=== PATIENT | female | born 1995 | race American Indian/Alaskan Native ===

== ENCOUNTER 2016-05-14 20:48 | Emergency (ER) | payer MEDICAID ==
[2016-05-14 21:26] LABS: Basophils % (Auto) 0.4 % (0.0-1.8); Eosinophils % (Auto) 0.7 % (0.0-4.3); Hematocrit 35.2 % (30.3-42.9); Hemoglobin 11.8 gm/dl (10.1-14.3); Mean Corpuscular HGB Conc 34 % (30-34); Mean Corpuscular Hemoglobin 33 pg (28-32); Mean Corpuscular Volume 98 fl (79-97); Platelet Count 218 K/mm3 (140-440); Red Blood Count 3.58 M/mm3 (3.65-5.03); Red Cell Distribution Width 14.1 % (13.2-15.2); White Blood Count 8.4 K/mm3 (4.5-11.0)
[2016-05-14 21:49] LABS: Anion Gap 18 mmol/L; Blood Urea Nitrogen 13 mg/dL (7-17); Calcium 8.6 mg/dL (8.4-10.2); Carbon Dioxide 22 mmol/L (22-30); Chloride 101.4 mmol/L (98-107); Glucose 88 mg/dL (65-100); Potassium 4.6 mmol/L (3.6-5.0); Sodium 137 mmol/L (137-145)
--- NOTE | 2016-05-14 22:21 | Emergency Department Report ---
ED General Adult HPI - General Chief complaint: Chest Pain Stated complaint: CHEST PAIN Time Seen by Provider: 05/14/16 21:59 Source: patient Mode of arrival: Stretcher Limitations: No Limitations - History of Present Illness Initial comments: This is a 20-year-old female. She is previously unknown to me. She is 1, para 0. Her senior mortgage loan processor is Dr. Fabian Hoskins at [place]. She is approximately 27 weeks . Patient reports that she has been following up with outpatient care, and reports an uncomplicated . Patient presents to the ER with chest pressure, shortness of breath and dizziness. Symptoms started at 7:00 this evening, they have since resolved. The pressure did not radiate to the back, arms and neck. There is no vomiting or diaphoresis. There is no leg pain or leg swelling. There is no hematemesis. There is no bright red blood per rectum. Symptoms do not change with deep inspiration or when the patient eats. Dizziness is described as a sensation of being woozy, there is no ataxia, there is no syncope, there is no near syncope. Patient reports eating and drinking the way she typically eats and drinks. Symptoms are currently resolved at this time. -: Gradual Location: chest Radiation: non-radiation Severity scale (0 -10): 8 Quality: aching Consistency: now resolved Improves with: none Worsens with: none Associated Symptoms: chest pain, shortness of breath, weakness. denies: confusion, cough, diaphoresis, headaches, loss of appetite, malaise, nausea/ vomiting - Related Data Allergies Allergy/AdvReac Type Severity Reaction Status Date / Time No Known Allergies Allergy Unverified 05/14/16 20:58 ED Review of Systems ROS: Stated complaint: CHEST PAIN Other details as noted in HPI Constitutional: denies: fever Eyes: denies: eye discharge ENT: as per HPI Respiratory: see HPI Cardiovascular: chest pain Gastrointestinal: denies: abdominal pain Genitourinary: as per HPI Musculoskeletal: as per HPI Skin: as per HPI Neurological: as per HPI Psychiatric: as per HPI, anxiety ED Past Medical Hx - Past Medical History Previous Medical History?: No - Surgical History Past Surgical History?: No - Social History Smoking Status: Never Smoker Substance Use Type: None ED Physical Exam - General Limitations: No Limitations General appearance: alert, in no apparent distress - Head Head exam: Present: atraumatic, normocephalic - Eye Eye exam: Present: normal appearance, PERRL, EOMI. Absent: nystagmus - ENT ENT exam: Present: normal exam, normal orophraynx, mucous membranes moist, normal external ear exam - Neck Neck exam: Present: normal inspection, full ROM. Absent: tenderness, meningismus - Respiratory Respiratory exam: Present: normal lung sounds bilaterally. Absent: respiratory distress, wheezes, rales, chest wall tenderness - Cardiovascular Cardiovascular Exam: Present: regular rate, normal rhythm, normal heart sounds. Absent: bradycardia, tachycardia, irregular rhythm, systolic murmur, diastolic murmur, rubs, gallop - GI/Abdominal GI/Abdominal exam: Present: soft, normal bowel sounds, other (the abdomen is nontender. The uterus is consistent for dates. There is no abdominal tenderness. There is no epigastric tenderness.). Absent: distended, tenderness , guarding, rebound, rigid, pulsatile mass - Extremities Exam Extremities exam: Present: normal inspection, full ROM, normal capillary refill. Absent: tenderness, pedal edema, joint swelling, calf tenderness - Back Exam Back exam: Present: normal inspection, full ROM. Absent: tenderness, CVA tenderness (R), CVA tenderness (L), muscle spasm, paraspinal tenderness, vertebral tenderness - Neurological Exam Neurological exam: Present: alert, oriented X3, normal gait, other (Extraocular movements intact. Tongue midline. No facial droop. Facial sensation intact to light touch in the V1, V2, V3 distribution bilaterally. 5 and 5 strength in 4 extremities.. Sensation is intact to light touch in 4 extremities.). Absent : motor sensory deficit - Psychiatric Psychiatric exam: Present: normal affect, normal mood - Skin Skin exam: Present: warm, dry, intact, normal color. Absent: rash ED Course Vital Signs 05/14/16 05/14/16 21:01 21:55 Temperature 97.3 F L 98.7 F Pulse Rate 81 85 Respiratory 20 16 Rate Blood Pressure 113/62 Blood Pressure 113/62 102/65 [Right] O2 Sat by Pulse 97 99 Oximetry - Reevaluation(s) Reevaluation #1: 05/14/16 23:28 Principal diagnosis: GERD, gastritis, acute coronary syndrome, pneumonia, orthostasis, pulmonary embolus Assessment and plan: 20-year-old female who is approximately 27 weeks , with chest pressure, dizziness, nonspecific shortness of breath. She has a GCS of 15, with an NIH score is 0. She walks with a steady gait. Her physical exam is unremarkable. The uterus appears consistent with dates, and heart tones are easily appreciated. Patient low risk by KIANA score, low risk by heart score, EKG was morphologically unremarkable. Given nonspecific complaints, I was concerned about presentation for possible pulmonary embolus. A d-dimer was elevated. However, the patient refused x-ray, and refused further imaging, including nuclear medicine study and CT angiogram. The patient is going to sign out AGAINST MEDICAL ADVICE. She was counseled about the risks of undiagnosed potential blood clot in the lung, including , disability, paralysis, loss of , loss of quality of life. The patient is alert and oriented 3, exhibits decision-making capacity, and is free from distracting injury. She understands that she can follow-up in the ER immediately as soon as possible if she changes her mind. Furthermore, the AMA conversation is witnessed by nurse Jacque Catalan, the patient's mother, and the patient's significant other. ED Medical Decision Making - Lab Data Result diagrams: 05/14/16 21:13 05/14/16 21:13 Vital Signs 05/14/16 05/14/16 21:01 21:55 Temperature 97.3 F L 98.7 F Pulse Rate 81 85 Respiratory 20 16 Rate Blood Pressure 113/62 Blood Pressure 113/62 102/65 [Right] O2 Sat by Pulse 97 99 Oximetry Lab Results 05/14/16 05/14/16 05/14/16 Range/Units 21:13 21:13 21:13 WBC 8.4 (4.5-11.0) K/mm3 RBC 3.58 L (3.65-5.03) M/mm3 Hgb 11.8 (10.1-14.3) gm/dl Hct 35.2 (30.3-42.9) % MCV 98 H (79-97) fl MCH 33 H (28-32) pg MCHC 34 (30-34) % RDW 14.1 (13.2-15.2) % Plt Count 218 (140-440) K/mm3 Lymph % (Auto) 21.5 (13.4-35.0) % Starke % (Auto) 6.7 (0.0-7.3) % Eos % (Auto) 0.7 (0.0-4.3) % Baso % (Auto) 0.4 (0.0-1.8) % Lymph # 1.8 (1.2-5.4) K/mm3 Starke # 0.6 (0.0-0.8) K/mm3 Eos # 0.1 (0.0-0.4) K/mm3 Baso # 0.0 (0.0-0.1) K/mm3 Seg Neutrophils % 70.7 H (40.0-70.0) % Seg Neutrophils # 5.9 (1.8-7.7) K/mm3 PT (12.2-14.9) Sec. INR (0.87-1.13) D-Dimer (0-234) ng/mlDDU Sodium 137 (137-145) mmol/L Potassium 4.6 (3.6-5.0) mmol/L Chloride 101.4 (98-107) mmol/L Carbon Dioxide 22 (22-30) mmol/L Anion Gap 18 mmol/L BUN 13 (7-17) mg/dL Creatinine 0.4 L (0.7-1.2) mg/dL Estimated GFR > 60 ml/min BUN/Creatinine Ratio 32.50 % Glucose 88 (65-100) mg/dL Calcium 8.6 (8.4-10.2) mg/dL Troponin T < 0.010 (0.00-0.029) ng/mL HCG, Quant 8119 H (0-4) mIU/mL 05/14/16 Range/Units 22:43 WBC (4.5-11.0) K/mm3 RBC (3.65-5.03) M/mm3 Hgb (10.1-14.3) gm/dl Hct (30.3-42.9) % MCV (79-97) fl MCH (28-32) pg MCHC (30-34) % RDW (13.2-15.2) % Plt Count (140-440) K/mm3 Lymph % (Auto) (13.4-35.0) % Starke % (Auto) (0.0-7.3) % Eos % (Auto) (0.0-4.3) % Baso % (Auto) (0.0-1.8) % Lymph # (1.2-5.4) K/mm3 Starke # (0.0-0.8) K/mm3 Eos # (0.0-0.4) K/mm3 Baso # (0.0-0.1) K/mm3 Seg Neutrophils % (40.0-70.0) % Seg Neutrophils # (1.8-7.7) K/mm3 PT 13.0 (12.2-14.9) Sec. INR 0.99 (0.87-1.13) D-Dimer 335.04 H (0-234) ng/mlDDU Sodium (137-145) mmol/L Potassium (3.6-5.0) mmol/L Chloride (98-107) mmol/L Carbon Dioxide (22-30) mmol/L Anion Gap mmol/L BUN (7-17) mg/dL Creatinine (0.7-1.2) mg/dL Estimated GFR ml/min BUN/Creatinine Ratio % Glucose (65-100) mg/dL Calcium (8.4-10.2) mg/dL Troponin T (0.00-0.029) ng/mL HCG, Quant (0-4) mIU/mL - EKG Data 05/14/16 23:30 Normal sinus, 80 beats per minute, normal intervals, normal axis, not morphologically consistent with STEMI. Critical care attestation.: If time is entered above; I have spent that time in minutes in the direct care of this critically ill patient, excluding procedure time. ED Disposition Clinical Impression: , Chest pressure Disposition: LEFT AGAINST MEDICAL ADVICE Is pt being admited?: No Does the pt Need Aspirin: No Condition: Undetermined Instructions: (ED), Pulmonary Embolism (GEN) Additional Instructions: As we discussed, you have left the hospital/emergency room AGAINST MEDICAL ADVICE. By leaving, you risked , disability, paralysis, permanent loss of quality of life. The ER is open 24 hours a day, 7 days a week. It never closes. Please return to the emergency room right away if and when you change your mind. If you decide not to return to the emergency room, please follow-up with the listed physician referrals as soon as possible. Referrals: PRIMARY MD LAUREN [Primary Care Provider] - 3-5 Days JOHNNY STEWART MD [Staff Physician] - 3-5 Days DIANE HOSKINS MD [Staff Physician] - 3-5 Days
[2016-05-14 22:30] VITALS: BP 102/65
[2016-05-14 23:05] LABS: INR 0.99 (0.87-1.13)
== END 2016-05-14 23:40 | disposition left against medical advice (07) ==
LOC: ED 20:48
DX: O26.892 Other specified pregnancy related conditions, second trimester (principal); R07.89 Other chest pain; Z3A.27 27 weeks gestation of pregnancy
CPT/HCPCS: 36415; 80048; 84484; 84702; 85025; 85379; 85610; 93005; 93010; 99285